=== PATIENT | male | born 1990 | race African-American/Black ===

== ENCOUNTER 2017-10-10 14:45 | Emergency (ER) | payer MEDICAID, MEDICARE ==
[~2017-10-10 14:45] MED LIST: ATOR10TA69 PO; INSU100I7 SQ; INSU3INS6 SQ; METF500T6 PO
== END 2017-10-10 16:15 | disposition left against medical advice (07) ==
LOC: ER 15:59
DX: Z53.21 Procedure and treatment not carried out due to patient leaving prior to being seen by health care provider (principal)

== ENCOUNTER 2020-08-13 15:50 | Emergency (ER) | payer MEDICAID, MEDICARE ==
[~2020-08-13] VITALS: Ht 175.3 cm; Wt 75.0 kg
[~2020-08-13 15:50] MED LIST changes: +METF-414 PO; -METF500T6 PO
[2020-08-13 16:00] VITALS: BP 147/114
[2020-08-13 17:25] LABS: BASOPHILS % 0.4 % (0.0-2.0); EOSINOPHILS % 1.7 % (0.0-5.0); HEMATOCRIT. 40.3 % (42.0-52.0); HEMOGLOBIN. 13.1 g/dL (14.0-18.0); LYMPHOCYTES % 26.5 % (20.0-50.0); MEAN CORPUSCULAR HEMOGLOBIN 22.9 pg (28.0-32.0); MEAN CORPUSCULAR VOLUME 70.6 fL (80.0-94.0); MEAN PLATELET VOLUME 8.4 fl (7.4-10.4); MONOCYTES % 6.1 % (2.0-8.0); NEUTROPHILS % 65.3 % (40.0-76.0); PLATELET 324 x1000/uL (130-400); RED BLOOD CELL COUNT 5.71 mill/uL (4.7-6.1); RED CELL DISTRIBUTION WIDTH 14.1 % (11.6-14.6)
[2020-08-13 17:29] LABS: CLARITY URINE CLEAR (CLEAR); COLOR URINE YELLOW (YELLOW); KETONES URINE NEGATIVE (NEGATIVE); LEUKOCYTE ESTERASE URINE NEGATIVE (NEGATIVE); NITRITE URINE NEGATIVE (NEGATIVE); OCCULT BLOOD URINE NEGATIVE (NEGATIVE); PH URINE 7.5 (4.5-8.0); PROTEIN URINE 2+ (NEGATIVE)
[2020-08-13 17:32] LABS: CHLORIDE 103 mEq/L (98-107)
[2020-08-13 17:39] LABS: CREATINE KINASE 93 IU/L (39-308)
== END 2020-08-13 18:41 | disposition home or self-care (01) ==
LOC: ER 15:50
DX: R10.30 Lower abdominal pain, unspecified (principal); R43.2 Parageusia
CPT/HCPCS: 36415; 80053; 81003; 82550; 83690; 85025; 99283; Z7610